=== PATIENT | male | born 1965 | race Caucasian/White ===

== ENCOUNTER 2018-04-10 13:39 | Emergency (ER) | payer OTHER ==
[~2018-04-10] VITALS: Ht 177.8 cm; Wt 99.8 kg
[~2018-04-10 13:39] MED LIST: ANAPROX DS550 MG PO; COMBIVENT1 ARO IH; ZITHROMAX Z PA250 MG PO; ZOVIRAX800 MG PO
[2018-04-10] MEDS ORDERED: ANTIBIOTIC28.4 GM T (14:21)
[2018-04-10] MEDS ORDERED: CEPHALEXIN500 M1 PO (14:21)
== END 2018-04-10 14:51 | disposition home or self-care (01) ==
LOC: ED 13:39
DX: L02.224 Furuncle of groin (principal); I10 Essential (primary) hypertension; E78.00 Pure hypercholesterolemia, unspecified; Z88.2 Allergy status to sulfonamides

== ENCOUNTER 2018-04-23 18:44 | Emergency (ER) | payer OTHER ==
[~2018-04-23] VITALS: Ht 177.8 cm; Wt 99.8 kg
--- NOTE | ~2018-04-23 | EKG ---
[place], [place] ELECTROCARDIOGRAM REPORT NAME: KULWINDER GARCIA UNIT #: [id number] ROOM: DOCTOR: EPIPHANY DRAFT REPORT BIRTHDATE: [birth year] [facility] Test Date: 2018-04-23 Test Time: 18:56:32 Pat Name: KULWINDER GARCIA Department: Room: Gender: Development Administrator: : [id number] Requested By: JOVANA SALAZAR Order Number: [id number] Reading MD: Robel Hwang MD Measurements Intervals [place] Rate: 54 P: 39 ND: 153 QRS: 62 QRSD: 100 T: 48 QT: 425 QTc: 403 Interpretive Statements Sinus rhythm Nonspecific ST T changes Electronically Signed On 04-25-2018 11:22:07 PST by Robel Hwang MD CM:EKGRPT:ELECTROCARDIOGRAM REPORT [id number] JOVANA CARDONA DRAFT REPORT JOVANA SALAZAR M.D.
[~2018-04-23 18:44] MED LIST changes: +ANTIBIOTIC28.4 GM T; +CEPHALEXIN500 M1 PO
[2018-04-23 19:44] LABS: BASO # 0.1 10*3/uL (0.0-0.1); EOS # 0.3 10*3/uL (0.0-0.4); EOS % 2.6 % (1.0-4.0); HEMATOCRIT 46.6 % (42.0-52.0); HEMOGLOBIN 15.7 g/dl (14.0-18.0); LYMPH % 29.6 % (27.0-41.0); MEAN CELL VOLUME 94.7 fl (80.0-94.0); MEAN CORPUSCULAR HGB 31.9 pg (27.0-31.0); MEAN CORPUSCULAR HGB CONC 33.7 g/dl (33.0-37.0); MEAN PLATELET VOLUME 9.7 fl (9.6-12.3); MONO # 0.8 10*3/uL (0.1-1.0); MONO % 7.4 % (3.0-9.0); NEUT % 58.3 % (47.0-73.0); PLATELET COUNT AUTOMATED 248 10*3/uL (130-400); RED BLOOD COUNT 4.92 10*6/uL (4.50-5.90); RED CELL DISTRI WIDTH 12.7 % (0-14.5); WHITE BLOOD COUNT 10.2 10*3/uL (4.8-10.8)
[2018-04-23 20:00] LABS: ALBUMIN 3.6 gm/dl (3.1-4.5); ALKALINE PHOSPHATASE 65 U/L (45-117); BUN 11 mg/dl (7-24); CHLORIDE 103 mmol/L (98-107); CREATININE 0.99 mg/dL (0.70-1.30); POTASSIUM 4.2 mmol/L (3.5-5.1); SGOT/AST 18 IU/L (3-35); SGPT/ALT 23 U/L (12-78); SODIUM 135 mmol/L (136-145); TOTAL PROTEIN 7.1 gm/dL (6.4-8.2)
[2018-04-23 20:02] LABS: TROPONIN I < 0.015 ng/ml (<0.045)
== END 2018-04-23 22:16 | disposition home or self-care (01) ==
LOC: ED 18:44
PROVIDERS: Emergency Medicine
DX: M79.605 Pain in left leg (principal); R00.2 Palpitations; R06.02 Shortness of breath; I73.9 Peripheral vascular disease, unspecified; Z88.2 Allergy status to sulfonamides; Z91.040 Latex allergy status; Z95.5 Presence of coronary angioplasty implant and graft; X58.XXXA Exposure to other specified factors, initial encounter; Y93.89 Activity, other specified; Y92.89 Other specified places as the place of occurrence of the external cause; Y99.8 Other external cause status

== ENCOUNTER 2018-08-06 14:52 | Emergency (ER) | payer MEDICARE, MEDICAID ==
[~2018-08-06] VITALS: Ht 177.8 cm; Wt 108.9 kg
[2018-08-06] MEDS ORDERED: PLAVIX75 M1 PO (14:56)
[2018-08-06] MEDS ORDERED: ATENOLOL50 M1 PO (14:56)
[2018-08-06] MEDS ORDERED: PROTONIX TR40 MG PO (14:56)
[2018-08-06] MEDS ORDERED: KLONOPIN2 M1 PO (14:57)
[2018-08-06] MEDS ORDERED: CEPHALEXIN500 M1 PO (16:31)
== END 2018-08-06 16:39 | disposition home or self-care (01) ==
LOC: ED 14:52
DX: L60.0 Ingrowing nail (principal); Z79.899 Other long term (current) drug therapy; Z88.2 Allergy status to sulfonamides

== ENCOUNTER 2018-08-26 10:06 | Emergency (ER) | payer MEDICARE, MEDICAID ==
[~2018-08-26] VITALS: Ht 177.8 cm; Wt 104.3 kg
[~2018-08-26 10:06] MED LIST changes: +ATENOLOL50 M1 PO; +KLONOPIN2 M1 PO; +PLAVIX75 M1 PO; +PROTONIX TR40 MG PO
== END 2018-08-26 10:45 | disposition home or self-care (01) ==
LOC: ED 10:06
DX: Z48.01 Encounter for change or removal of surgical wound dressing (principal); Z88.2 Allergy status to sulfonamides; Z79.899 Other long term (current) drug therapy